=== PATIENT | female | born 1970 | race Caucasian/White ===

== ENCOUNTER 2017-09-09 17:03 | Emergency (ER) | payer OTHER ==
[~2017-09-09] VITALS: Ht 170.2 cm; Wt 63.5 kg
--- NOTE | 2017-09-09 17:57 | ED GENERAL ADULT ---
See Addendum History of Present Illness General Chief Complaint: Headache Stated Complaint: HEADACHE FOR 3 DAYS, SHIVERS Source: patient Exam Limitations: no limitations Vital Signs & Intake/Output Vital Signs & Intake/Output Vital Signs Date Time Temp Pulse Resp B/P B/P Pulse O2 O2 Flow FiO2 Mean Ox Delivery Rate 09/09 1825 100.6 09/09 1820 100.6 88 20 95 Room Air 09/09 1744 Room Air 09/09 1729 103.7 09/09 1724 103.7 116 20 166/100 96 Room Air Allergies Coded Allergies: NO KNOWN ALLERGIES (09/09/17) Triage Note: PT COMPLAINS OF PAIN BASE OF HER NECK FOR THE PAST 3 DAYS, TEMP 103.7 , COLOR FLUSHED, PT NOTED WITH UNCONTROLLED TREMORS AT TRIAGE. MEDICATED WITH TYLENOL AN D BROUGHT DIRECTLY TO ROOM Triage Nurses Notes Reviewed? 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 She has no history or risk factors for meningitis, immunodeficiency, has no sick contacts at home, and has no family members currently living in a dormitory or barracks situation. She reports that 3 days ago she began experiencing moderate headache discomfort, which has progressed over the ensuing 72 hours to include cervical pain made worse with flexion, shaking chills, and tactile fever. At triage, the patient was tachycardic with an oral temperature of 103F. Meningitis and sepsis pathway's initiated immediately. Past History Travel History Traveled to [place] past 21 day No Medical History Any Pertinent Medical History? 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 No Employment History Employment Employed (at [employer]) Review of Systems Review of Systems Constitutional: Reports: see HPI, chills, diaphoresis, fever, weakness. Denies: unexplained weight loss. EENTM: Reports: no symptoms. Respiratory: Reports: no symptoms. Cardiovascular: Reports: no symptoms. GI: Reports: no symptoms. Genitourinary: Reports: no symptoms. Musculoskeletal: Reports: no symptoms, neck pain. Skin: Reports: no symptoms. Neurological/Psychological: Reports: see HPI, headache. Hematologic/Endocrine: Reports: no symptoms. Immunologic/Allergic: Reports: no symptoms. All Other Systems: Reviewed and Negative Physical Exam Physical Exam General Appearance: well developed/nourished, moderate distress Comments: Gen.: Ill in appearance with obvious nuchal rigidity, tachycardia, and tactile fever. HEENT: Inspection of the head reveals a normocephalic cranium with no signs of trauma. Ophtho: Extraocular muscles are intact and pupils are equal and reactive to light bilaterally with no afferent pupillary defect. The sclera are noninjected , and there is no obvious discharge. Neck: Nuchal rigidity made much worse on flexion. Respiratory: The lungs are clear and equal to auscultation bilaterally without wheezes, rales, or rhonchi. The patient exhibits no signs of labored breathing. Cardiac: Tachycardic without appreciable murmurs on auscultation. No obvious JVD. GI: Examination of the abdomen reveals no significant focal tenderness in any of the four quadrants. There is negative Buck's sign, negative McBurney's point tenderness, negative Freddie sign, negative Cortes-Pereira sign, and no signs of peritonitis whatsoever on percussion or deep palpation. The skin is intact with no sign of trauma or infection. : Deferred Neuro: Active headache. The patient is oriented to person, place, time, and situation, with no obvious focal motor deficits. There were no sensory deficits , and the patient exhibit purposeful movement of all 4 extremities. Cranial nerves II through XII are intact, and gait is normal. Behavioral: Anxious regarding symptoms. Dermatologic: Flushed, but no jules exanthem. Core Measures ACS in differential dx? No CVA/TIA Diagnosis: No Sepsis Present: No (lactate negative) Sepsis Focused Exam Completed? Yes ED Sepsis Exam Date of Focused Sepsis Exam: 09/09/17 Time of Focused Sepsis Exam: 1801 Sepsis Cardiac Exam: Regular Rate/Rhythm Sepsis Resp Exam: CTA Sepsis Cap Refill Exam: <2 Sec Sepsis Peripheral Pulse Exam: Normal Sepsis Peripheral Pulse Location: Dorsalis Pedis Sepsis Skin Color Exam: Flushed Skin Temp/Moisture Exam: Hot/Dry Progress Differential Diagnoses I considered the following diagnoses in my evaluation of the patient: Sepsis, viral meningitis, bacterial meningitis, aseptic meningitis, cervical abscess, viral syndrome Plan of Care: Orders Procedure Date/time Status Nothing by Mouth 09/10 B Active LACTIC ACID 09/09 2046 Active LACTIC ACID 09/09 2026 Active CEREBROSPINAL FL CELL CT 09/09 185 Active URINE 09/[address] CERV SPINE W IV CONTRAST 09/09 175 Active CEREBROSPINAL FLUID CULTURE 09/09 174 Active BLOOD CULTURE 09/09 174 Active URINALYSIS 09/09 174 Active LACTIC ACID 09/09 174 Active ANTI-IMMUNE GLOBULIN G CSF 09/09 174 Active CYTOLOGY SPECIMEN 09/09 174 Active CSF TOTAL PROTEIN 09/09 174 Active CSF LDH 09/09 174 Active CSF GLUCOSE 09/09 174 Active EKG 09/[address] HEAD WO IV CONTRAST 09/09 174 Active BLOOD CULTURE 09/09 172 Active LACTIC ACID 09/09 172 Complete HUMAN BETA HCG SCREEN 09/09 172 Complete COMPREHENSIVE METABOLIC PANEL 09/09 172 Complete CBC WITHOUT DIFFERENTIAL 09/09 1726 Complete Laboratory Tests 09/09/17 1850: CSF Glucose 56, CSF LDH 123, CSF Total Protein 41 09/09/17 1850: CSF WBC Pending, CSF RBC Pending, CSF Comment Pending 09/09/17 185: Lactic Acid Pending, CSF Albumin Pending, CSF IgG Pending, IgG, Serum (MS) Pending, Serum Albumin Pending, CSF IgG Synth Rate MS Pending, CSF/Serum IgG Index Pending 09/09/17 1805: Anion Gap 12, Estimated GFR > 60, BUN/Creatinine Ratio 13.3, Glucose 101 H, Lactic Acid 1.0, Calcium 9.0, Total Bilirubin 0.9, AST 33, ALT 37, Alkaline Phosphatase 65, Total Protein 7.3, Albumin 4.0, Globulin 3.3, Albumin/Globulin Ratio 1.2, Total Beta HCG NEGATIVE, CBC w Diff NO MAN DIFF REQ, RBC 4.25, MCV 89.7, MCH 30.8, MCHC 34.4, RDW 12.6, MPV 8.3, Gran % 81.0 H, Lymphocytes % 9.0 L, Monocytes % 9.9 H, Eosinophils % 0, Basophils % 0.1, Absolute Granulocytes 5.7, Absolute Lymphocytes 0.6 L, Absolute Monocytes 0.7 H, Absolute Eosinophils 0, Absolute Basophils 0 Microbiology 09/09 1850 CENT N S: CSF Culture - RECD 09/09 1850 CENT N S: Gram Stain - RECD 09/09 1804 BLOOD: Blood Culture - RECD 09/09 1726 BLOOD: Blood Culture - ORD 09/09 1726 BLOOD: Blood Culture - ORD CXR Impression: no acute abnormality, no infiltrates, normal size heart, normal mediastinum Initial ED EKG: ECG performed at 1801 hrs., read by me at 1805 hrs., normal sinus rhythm at 90 bpm, normal axis, normal P waves, ME interval, QTC, and QRS intervals, normal ST segments, normal T waves, no STEMI. Hand-Off Endorsed To: Ron Fink MD Endorsed Time: 1917 Pending: CT, labs (CSF), other Comments: At the time of shift change, care was transitioned to Dr. Fink. We are still awaiting CSF results, fluid resuscitation, defervescence, and urinalysis. Thankfully the lactate is negative so sepsis does not appear to be present. Diagnosis of enteritis will depend on CSF. Patient still on droplet precautions. Departure Departure Disposition: STILL A PATIENT Condition: Stable Clinical Impression Primary Impression: Headache Qualifiers: Headache type: unspecified Headache chronicity pattern: acute headache Intractability: not intractable Qualified Code: R51 - Headache Secondary Impressions: Fever Qualifiers: Fever type: unspecified Qualified Code: R50.9 - Fever, unspecified Referrals: Rocael MCKINNON,Jadiel Sinclair (PCP/Family) Departure Forms: Customer Survey General Discharge Information Critical Care Note Critical Care Note Critical Care Time: 75-104 min Comments: Critical care time spent >60 minutes. The patient was suffering from a critical illness that acutely impairs one or more vital organ systems and there is a high probability of imminent or life threatening deterioration in the patient's condition. During this time I was personally involved in activities including direct delivery of medical care, aggressive sepsis care, meningitis workup, including lumbar puncture, consulting multiple specialists, and decision making of high complexity to assess, manipulate, and support vital organ system failure (in this case, potential meningitis with sepsis) and/or to prevent further life threatening deterioration of the patient's condition. The failure to initiate these interventions on an urgent basis would likely result in sudden, clinically significant or life threatening deterioration in the patient's condition.
--- NOTE | 2017-09-09 18:26 | RADIOLOGY REPORT ---
EXAMINATION: CHEST 1 VIEW CLINICAL INFORMATION: Fever. COMPARISON: 10/24/2009. TECHNIQUE: An AP view of the chest is provided. FINDINGS: The cardiac silhouette is not enlarged. The mediastinal and hilar contours are unremarkable. There are neither pleural effusions nor pneumothoraces. There are no consolidations. The osseous structures are unremarkable. IMPRESSION: No evidence for acute disease.
[2017-09-09 18:41] LABS: ABSOLUTE BASOPHIL COUNT 0 /CUMM (0.0-0.2); ABSOLUTE EOSINOPHIL COUNT 0 /CUMM (0.0-0.7); ABSOLUTE GRANULOCYTE CT 5.7 /CUMM (1.4-6.5); ABSOLUTE LYMPH COUNT 0.6 /CUMM (1.2-3.4); ABSOLUTE MONOCYTE COUNT 0.7 /CUMM (0.10-0.60); BASOPHIL % 0.1 % (0.0-2.0); EOSINOPHIL % 0 % (0-5); HEMATOCRIT 38.1 % (37-47); MEAN CORPUSCULAR HGB 30.8 PG (27.0-31.0); MEAN CORPUSCULAR HGB CONC 34.4 G/DL (33.0-37.0); MEAN CORPUSCULAR VOLUME 89.7 FL (81.0-99.0); MEAN PLATELET VOLUME 8.3 FL (7.4-10.4); PLATELET COUNT 246 /CUMM (130-400); RBC DISTRIBUTION WIDTH 12.6 % (11.5-14.5); RED BLOOD CELL CT 4.25 /CUMM (4.20-5.40); WHITE BLOOD CELL COUNT 7.1 /CUMM (4.8-10.8)
--- NOTE | 2017-09-09 20:34 | CT SCAN REPORT ---
EXAMINATIONS: CT HEAD WITHOUT CONTRAST AND CT NECK WITH CONTRAST CLINICAL INFORMATION: Headache, neck pain, fever. Concern for meningitis or abscess. COMPARISON: None. TECHNIQUE: Contiguous helical images of the brain were obtained without IV contrast. Contiguous helical images of the neck were obtained following the administration of IV contrast. Multiplanar reconstructions were performed. DLP: 1120 mGy-cm. FINDINGS: There are no pathologic extra-axial fluid collections. The lateral, third, fourth ventricles are nondilated and concordant with the appearance of the sulci. There is no evidence for acute intraparenchymal hemorrhage or infarct. There is neither mass nor mass effect. There is no shift of midline structures. The paranasal sinuses and mastoid air cells are clear. There are no osseous lesions. The cervical vertebra are in normal alignment. There is mild disc height loss at C5/C6. Disc heights and vertebral heights are otherwise well-preserved. There are no fractures. There is no prevertebral soft tissue swelling. There are no enhancing lesions. There are no abnormal fluid collections. There is no cervical lymphadenopathy. The visualized lung apices are clear. IMPRESSION: No evidence for acute intracranial injury. No evidence for acute injury to the neck. No fluid collections. No enhancing lesions. No osseous abnormalities. Mild disc height loss at C5/C6.
[2017-09-09 23:03] VITALS: BP 138/79
== END 2017-09-09 23:05 ==
LOC: ERH 17:03
PROVIDERS: Physician Assistant
DX: R51 Headache (principal); R50.9 Fever, unspecified
CPT/HCPCS: 82040; 82784; 83883; 87070; 87205; 71045; 81003; 81025; 87040; 88305; 93005; 93010; 96374; 96375; 99291; J0696; J1100; J1885; J2001; J2765; J3370; J7040

== ENCOUNTER 2017-09-14 08:14 | Emergency (ER) | payer OTHER ==
[~2017-09-14] VITALS: Ht 168.9 cm; Wt 63.5 kg
--- NOTE | 2017-09-14 08:48 | ED GENERAL ADULT ---
History of Present Illness General Chief Complaint: Headache Stated Complaint: [place] Source: patient Exam Limitations: no limitations Vital Signs & Intake/Output Vital Signs & Intake/Output Vital Signs Date Time Temp Pulse Resp B/P B/P Pulse O2 O2 Flow FiO2 Mean Ox Delivery Rate 09/14 1058 98.2 64 20 121/57 89 09/14 0916 98.0 64 18 122/57 100 / 0820 98.0 62 18 155/92 99 Room Air Allergies Coded Allergies: NO KNOWN ALLERGIES (09/09/17) Reconcile Medications No Known Home Medications Triage Note: 46 YEAR OLD FEMALE TO TRIAGE WITH COMPLAINTS OF CONSTANT HEADACHE SINCE THURSDAY, WAS SEEN HERE THURSDAY, HAD 103.7 TEMP HEAD PAIN, HAD SPINAL TAP DONE THAT WAS NEGATIVE. STATES THAT THE HEADACHE HAS NEVER GONE AWAY, TOOK MOTRIN OVER THE WEEKEND WITH NO RELIEF. PT HAS NAUSEA AND VOMITTED X 1 THIS AM. AFEBRILE AT THIS TIME Triage Nurses Notes Reviewed? yes HPI: Patient is a healthy 38-year-old female who presents today for headache. I personally evaluated her last week for headache, fever, rigors, and nuchal rigidity. We performed laboratory studies and a lumbar puncture. The CSF was clear and there is no evidence of meningitis at that time. She reported feeling somewhat improved and was discharged home. However, she reports her headache syndrome has been ongoing and is identical to that which brought her in last time. She has no further fever, but when she left last week she did note a lesion on her left lower extremity near her Achilles which had scabbed over. No tick was seen but she did note a tick on her indoor cat recently. Upon my initial encounter she is clearly uncomfortable, albeit nontoxic. Past History Travel History Traveled to [place] past 21 day No Medical History Any Pertinent Medical History? 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 No Review of Systems Review of Systems Constitutional: Reports: see HPI. Denies: chills, diaphoresis, fever, malaise. EENTM: Reports: no symptoms. Respiratory: Reports: no symptoms. Cardiovascular: Reports: no symptoms. GI: Reports: no symptoms. Genitourinary: Reports: no symptoms. Musculoskeletal: Reports: no symptoms. Skin: Reports: no symptoms. Neurological/Psychological: Reports: see HPI, headache. Hematologic/Endocrine: Reports: no symptoms. Immunologic/Allergic: Reports: no symptoms. All Other Systems: Reviewed and Negative Physical Exam Physical Exam General Appearance: well developed/nourished, alert, awake, moderate distress Comments: HEENT: Inspection of the head reveals a normocephalic cranium with no signs of trauma. Ophtho: Extraocular muscles are intact and pupils are equal and reactive to light bilaterally with no afferent pupillary defect. The sclera are noninjected , and there is no obvious discharge. Neck: The trachea is midline, there is no obvious asymmetry or mass over the thyroid, and there is no midline cervical spine tenderness Respiratory: The lungs are clear and equal to auscultation bilaterally without wheezes, rales, or rhonchi. The patient exhibits no signs of labored breathing. Cardiac: Regular rhythm and non-tachycardic without appreciable murmurs on auscultation. No obvious JVD. GI: Examination of the abdomen reveals no significant focal tenderness in any of the four quadrants. There is negative Buck's sign, negative McBurney's point tenderness, negative Osgood sign, negative Cortes-Pereira sign, and no signs of peritonitis whatsoever on percussion or deep palpation. The skin is intact with no sign of trauma or infection. : Deferred Neuro: Active headache pain. The patient is oriented to person, place, time, and situation, with no obvious focal motor deficits. There were no sensory deficits, and the patient exhibit purposeful movement of all 4 extremities. Cranial nerves II through XII are intact, and gait is normal. Behavioral: Calm and cooperative Dermatologic: Dermatologic examination reveals no diffuse rashes or exanthems, no petechiae, no ecchymoses, and no other signs of erythema or infection. Core Measures ACS in differential dx? No CVA/TIA Diagnosis: No Sepsis Present: No Sepsis Focused Exam Completed? No Progress Differential Diagnoses I considered the following diagnoses in my evaluation of the patient: Plan of Care: Orders Procedure Date/time Status URINE 09/14 838 Complete URINALYSIS 06/04 0839 Complete LYME TITRE 09/14 838 Active COMPREHENSIVE METABOLIC PANEL 09/14 838 Complete CBC WITHOUT DIFFERENTIAL 09/14 838 Complete Laboratory Tests 09/14/17 0958: Urine Color YEL, Urine Clarity CLEAR, Urine pH 7.5, Ur Specific [place] 1.015, Urine Protein NEG, Urine Ketones NEG, Urine Nitrite NEG, Urine Bilirubin NEG, Urine Urobilinogen 0.2, Ur Leukocyte Esterase NEG, Ur Microscopic SEDIMENT EXAMINED, Urine RBC 1-3, Ur Epithelial Cells FEW, Urine Bacteria RARE H, Urine Hemoglobin TRACE-INTACT, Urine Glucose NEG, Urine Test NEGATIVE 09/14/17 0848: Lyme Disease Antibody Pending 09/14/17847: Anion Gap 8, Estimated GFR > 60, BUN/Creatinine Ratio 16.7, Glucose 106 H, Calcium 8.8, Total Bilirubin 0.6, AST 32, ALT 35, Alkaline Phosphatase 56, Total Protein 6.6, Albumin 3.5, Globulin 3.1, Albumin/Globulin Ratio 1.1, CBC w Diff NO MAN DIFF REQ, RBC 3.98 L, MCV 88.2, MCH 30.8, MCHC 34.9, RDW 12.7, MPV 7.6, Gran % 73.4, Lymphocytes % 19.3 L, Monocytes % 6.4, Eosinophils % 0.5, Basophils % 0.4, Absolute Granulocytes 4.3, Absolute Lymphocytes 1.1 L, Absolute Monocytes 0.4, Absolute Eosinophils 0, Absolute Basophils 0, Babesia microti IgG Ab Pending, Babesia microti IgM Ab Pending, Babesia Interpretation Pending, Ehrlichia DNA (PCR) Pending Initial ED EKG: none Comments: Patient presented today for ongoing headache in the setting of recent visit to the emergency department for rule out of meningitis. Please see my prior note from that encounter. Workup was negative at that time, but pain continued. Patient did note a cutaneous lesion on her leg since then and was concern for tick bite, so I have sent a tickborne disease panel. She felt improved with intravenous fluids, dexamethasone, ketorolac and metoclopramide. I reassessment , patient requested discharge home. She received imaging last week which was negative and I do not suspect internal intracerebral pathology. Rather, this may be a new onset headache syndrome versus effects from Lyme disease etc. so she will follow-up with her PCP for final Lyme panel results and with neurology for reassessment of her headache syndrome. Medical screening examination otherwise negative, patient stable at time of discharge. I recommended over-the -counter Excedrin Migraine for her ongoing symptoms until such time as neurology can recommend further medications. Departure Departure Time of Disposition: 1150 Disposition: HOME OR SELF CARE Condition: Stable Clinical Impression Primary Impression: Headache Qualifiers: Headache type: unspecified Headache chronicity pattern: episodic headache Intractability: intractable Qualified Code: R51 - Headache Referrals: Rocael MCKINNON,Jadiel Sinclair (PCP/Family) Additional Instructions: Please call your primary physician for follow-up and for referral to neurology, who you can call at the attached number for an appointment. As always, return to the emergency department if you develop any new or worsening symptoms. Departure Forms: Customer Survey General Discharge Information Prescriptions: Current Visit Scripts No Known Home Medications Critical Care Note Critical Care Note Critical Care Time: non-applicable
[2017-09-14 09:00] LABS: ABSOLUTE BASOPHIL COUNT 0 /CUMM (0.0-0.2); ABSOLUTE EOSINOPHIL COUNT 0 /CUMM (0.0-0.7); ABSOLUTE GRANULOCYTE CT 4.3 /CUMM (1.4-6.5); ABSOLUTE LYMPH COUNT 1.1 /CUMM (1.2-3.4); ABSOLUTE MONOCYTE COUNT 0.4 /CUMM (0.10-0.60); BASOPHIL % 0.4 % (0.0-2.0); EOSINOPHIL % 0.5 % (0-5); GRANULOCYTE % 73.4 % (42.2-75.2); HEMATOCRIT 35.1 % (37-47); MEAN CORPUSCULAR HGB 30.8 PG (27.0-31.0); MEAN CORPUSCULAR HGB CONC 34.9 G/DL (33.0-37.0); MEAN CORPUSCULAR VOLUME 88.2 FL (81.0-99.0); MEAN PLATELET VOLUME 7.6 FL (7.4-10.4); PLATELET COUNT 333 /CUMM (130-400); RBC DISTRIBUTION WIDTH 12.7 % (11.5-14.5); RED BLOOD CELL CT 3.98 /CUMM (4.20-5.40); WHITE BLOOD CELL COUNT 5.8 /CUMM (4.8-10.8)
[2017-09-14 10:58] VITALS: BP 121/57
[2017-09-17 14:36] LABS: BABESIA MICROTI IGG <1:64 (<1:64); BABESIA MICROTI IGM <1:20 (<1:20)
== END 2017-09-14 11:56 ==
LOC: ERH 08:14
PROVIDERS: Student in an Organized Health Care Education/Training Program
DX: R51 Headache (principal)
CPT/HCPCS: 86618; 81001; 81025; 86753; 87798; 96361; 96374; 96375; J1100; J1885; J2765

== ENCOUNTER 2017-09-15 11:18 | Emergency (ER) | payer OTHER ==
[~2017-09-15] VITALS: Ht 168.9 cm; Wt 63.5 kg
--- NOTE | 2017-09-15 11:51 | ED GENERAL ADULT ---
See Addendum History of Present Illness General Chief Complaint: Headache Stated Complaint: "HERE FOR ADMISSION, HEADACHES" PER PT Source: patient Exam Limitations: no limitations Vital Signs & Intake/Output Vital Signs & Intake/Output Vital Signs Date Time Temp Pulse Resp B/P B/P Pulse O2 O2 Flow FiO2 Mean Ox Delivery Rate 09/15 1147 98.4 72 18 159/83 98 Room Air Allergies Coded Allergies: NO KNOWN ALLERGIES (09/09/17) Reconcile Medications No Known Home Medications Triage Nurses Notes Reviewed? yes HPI: Patient is a 46-year-old female who presents today for headache. I received a call earlier this morning from her primary care physician with whom she had called to make an appointment. He called me from the office stating that she was still in excruciating pain, holding her head and crying. I evaluated her last week at which time she had a fever and neck rigidity so we did a full workup including CSF which was negative. We discussed the possibility of viral meningitis or aseptic meningitis at that time him about ultimately she was feeling better and was deemed stable for discharge home. She returned yesterday and I controlled her pain and again discussed with her the possibility of admission, but she felt better with our interventions and thus requested discharge home. I referred her to neurology and she made an appointment but unfortunately it is not for several weeks. When she saw her PCP today, her pain had returned fully. He is sending her back for reevaluation for likely admission which I feel is evidently reasonable given her intractable pain. Upon my initial encounter the patient is in severe distress, complaining of symptoms that are identical to those which she has had previously. Past History Travel History Traveled to [place] past 21 day No Medical History Any Pertinent Medical History? 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 No Review of Systems Review of Systems Constitutional: Reports: see HPI. EENTM: Reports: no symptoms. Respiratory: Reports: no symptoms. Cardiovascular: Reports: no symptoms. GI: Reports: no symptoms. Genitourinary: Reports: no symptoms. Musculoskeletal: Reports: no symptoms. Skin: Reports: no symptoms. Neurological/Psychological: Reports: headache. Denies: numbness, paresthesia. Hematologic/Endocrine: Reports: no symptoms. Immunologic/Allergic: Reports: no symptoms. All Other Systems: Reviewed and Negative Physical Exam Physical Exam General Appearance: well developed/nourished, no apparent distress, alert, awake , anxious, severe distress Comments: HEENT: Inspection of the head reveals a normocephalic cranium with no signs of trauma. Ophtho: Extraocular muscles are intact and pupils are equal and reactive to light bilaterally with no afferent pupillary defect. The sclera are noninjected , and there is no obvious discharge. Neck: The trachea is midline, there is no obvious asymmetry or mass over the thyroid, and there is no midline cervical spine tenderness Respiratory: The lungs are clear and equal to auscultation bilaterally without wheezes, rales, or rhonchi. The patient exhibits no signs of labored breathing. Cardiac: Regular rhythm and non-tachycardic without appreciable murmurs on auscultation. No obvious JVD. GI: Examination of the abdomen reveals no significant focal tenderness in any of the four quadrants. There is negative Buck's sign, negative McBurney's point tenderness, negative [place] sign, negative Cortes-Pereira sign, and no signs of peritonitis whatsoever on percussion or deep palpation. The skin is intact with no sign of trauma or infection. : Deferred Neuro: Active severe headache. The patient is oriented to person, place, time, and situation, with no obvious focal motor deficits. There were no sensory deficits, and the patient exhibit purposeful movement of all 4 extremities. Cranial nerves II through XII are intact, and gait is normal. Behavioral: Calm and cooperative Dermatologic: Dermatologic examination reveals no diffuse rashes or exanthems, no petechiae, no ecchymoses, and no other signs of erythema or infection. Core Measures ACS in differential dx? No CVA/TIA Diagnosis: No Sepsis Present: No Sepsis Focused Exam Completed? No Progress Differential Diagnoses I considered the following diagnoses in my evaluation of the patient: Migraine syndrome, viral meningitis, aseptic meningitis, other primary headache syndrome, multiple other possible neurologic abnormalities Plan of Care: Orders Procedure Date/time Status Regular Diet 09/15 D Active ED Holding Orders 09/16 1207 Active Admit to inpatient 09/16 1207 Active Code Status 06/05 1208 Active Patient Data 06/05 1201 Active COMPREHENSIVE METABOLIC PANEL 09/15 1146 Complete CBC WITHOUT DIFFERENTIAL 09/15 1146 Complete Laboratory Tests 09/15/17 1205: Anion Gap 12, Estimated GFR > 60, BUN/Creatinine Ratio 15.0, Glucose 107 H, Calcium 9.1, Total Bilirubin 0.9, AST 36, ALT 40, Alkaline Phosphatase 65, Total Protein 7.4, Albumin 4.0, Globulin 3.4, Albumin/Globulin Ratio 1.2, CBC w Diff NO MAN DIFF REQ, RBC 4.07 L, MCV 89.0, MCH 30.8, MCHC 34.7, RDW 12.6, MPV 7.7, Gran % 78.4 H, Lymphocytes % 16.7 L, Monocytes % 4.6, Eosinophils % 0.1, Basophils % 0.2, Absolute Granulocytes 8.0 H, Absolute Lymphocytes 1.7, Absolute Monocytes 0.5, Absolute Eosinophils 0, Absolute Basophils 0 Initial ED EKG: none Comments: Patient has had intractable pain and this is now her third visit. I reviewed again her CSF which was definitively negative with 0 white blood cells. Unfortunately no viral PCR was sent, but never left the patient has had no further nuchal rigidity or fever, making viral/aseptic meningitis less likely. Rather, other primary headache disorder is possible and given her intractable pain she will require hospitalization for neurology consultation, pain control intravenously, and further workup. Hospitalized in stable condition. Departure Departure Time of Disposition: 1155 Disposition: STILL A PATIENT Condition: Stable Clinical Impression Primary Impression: Intractable headache Qualifiers: Headache type: unspecified Headache chronicity pattern: episodic headache Qualified Code: R51 - Headache Referrals: Rocael MCKINNON,Jadiel Sinclair (PCP/Family) Departure Forms: Customer Survey General Discharge Information Prescriptions: Current Visit Scripts No Known Home Medications Admission Note Spoke With: Jensen MCKINNON,Lizet Documentation of Exam: Documentation of any treatments & extenuating circumstances including Concerns Regarding Discharge (functional status, medication knowledge or non-compliance, living conditions, etc.) that warrant an admission rather than observation: Patient has been to the emergency department now 3 times for severe headache pain. Our attempts at outpatient management have been unsuccessful and the pain has been intractable. She has required serial doses of IV analgesics in the emergency department each visit, including today. Discharge home again is not acceptable and the patient will require hospitalization for neurology consultation, further intravenous analgesics, and further workup. Critical Care Note Critical Care Note Critical Care Time: non-applicable
[2017-09-15 12:14] LABS: ABSOLUTE BASOPHIL COUNT 0 /CUMM (0.0-0.2); ABSOLUTE EOSINOPHIL COUNT 0 /CUMM (0.0-0.7); ABSOLUTE LYMPH COUNT 1.7 /CUMM (1.2-3.4); EOSINOPHIL % 0.1 % (0-5); MEAN CORPUSCULAR HGB 30.8 PG (27.0-31.0); RBC DISTRIBUTION WIDTH 12.6 % (11.5-14.5)
[2017-09-15 12:19] LABS: ABSOLUTE MONOCYTE COUNT 0.5 /CUMM (0.10-0.60); BASOPHIL % 0.2 % (0.0-2.0); GRANULOCYTE % 78.4 % (42.2-75.2); HEMATOCRIT 36.2 % (37-47); MEAN CORPUSCULAR HGB CONC 34.7 G/DL (33.0-37.0); MEAN PLATELET VOLUME 7.7 FL (7.4-10.4); PLATELET COUNT 393 /CUMM (130-400); RED BLOOD CELL CT 4.07 /CUMM (4.20-5.40)
[2017-09-15 12:20] LABS: WHITE BLOOD CELL COUNT 10.2 /CUMM (4.8-10.8)
--- NOTE | 2017-09-15 15:53 | INTERVENTIONAL RADIOLOGY RPT ---
PROCEDURE: FLUOROSCOPY GUIDED LUMBAR EPIDURAL BLOOD PATCH CLINICAL HISTORY: 46-year-old female with worsening headache status post lumbar puncture 1 week ago. COMPARISON: None PHYSICIANS: Dr. Harshad Bennett FLUOROSCOPY TIME: 3.2 minutes. DAP: 7.0 MEDICATIONS: 5 mL 1% lidocaine, subcutaneously. PROCEDURE NOTE: Informed consent was obtained from the patient prior to the procedure. During this process, the procedure and potential alternatives were explained along with the intended outcome and benefits. The risks of the procedure, including the possibility of an unsuccessful procedure, as well as the risk of not doing the procedure, were discussed. The patient was given the opportunity to ask questions regarding the procedure and appeared competent to make decisions. A signed consent form documenting this discussion was placed in the medical record. A time-out procedure was performed. TECHNIQUE: A 20-gauge IV Hep-Lock was placed in the right antecubital vein. The patient was placed on the table in the prone position. The lower back was prepped and draped in sterile fashion, using iodine-based solutions. Under fluoroscopic guidance, a 20-gauge spinal needle was slowly advanced into the epidural space of the central canal, at the L3-L4 level just short of entering the thecal sac. Needle position was confirmed by small injection of contrast. Next, approximately 10 cc of the patient's own blood was obtained from the Hep-Lock with sterile technique, and then slowly injected into the appropriately placed spinal needle. The needle was removed and a sterile dressing was applied. The patient tolerated the procedure well without any immediate complication. FINDINGS: A spinal needle is entering the central canal at the L3-L4 level. Spot radiographs show a small amount of contrast within the epidural space. IMPRESSION: Successful lumbar approach epidural blood patch, with a total of 10 ml autologous blood injected.
--- NOTE | 2017-09-15 16:10 | Cons- Medical ---
General Information and HPI Consulting Request Date of Consult: 09/15/17 Requested By: Domo Cuellar MD Reason for Consult: Intractable headache Source of Information: patient, old records Exam Limitations: no limitations History of Present Illness: The patient is a 46 yo female with no significant past medical history who originally presented in the ED 1 week ago for evaluation of headache. At that time she had full workup, including LP. CSF results were benign (no WBC, etc.). She returned to ED yesterday and was treated for headache and again today with worsening of headache, photophobia, & nausea. Was initially referred for admission. She has had no fevers, chills, or other symptoms. Upon questioning patient she has no h/o headaches or migraines. Headache has been much worse since LP and is worse on sitting/improved on lying down. [place] symptoms were more c/w spinal headache. Spoke with Dr. Mead in IR who performed blood patch at 2:30 pm (Dr. Cuellar aware). The patient described relief of headache and photophobia post blood patch. Allergies/Medications Allergies: Coded Allergies: NO KNOWN ALLERGIES (09/09/17) Home Med List: No Known Home Medications Current Medications: Current Medications Sig/Clint Start time Last Medication Dose Route Stop Time Status Admin Iohexol 0 .STK-MED ONE 09/15 1449 DC .ROUTE Ketorolac 0 .STK-MED ONE 09/15 1208 DC Tromethamine .ROUTE Ketorolac 30 MG ONCE ONE 09/15 1145 DC / Tromethamine IV 09/15 1146 1207 Metoclopramide HCl 0 .STK-MED ONE 09/15 1208 DC .ROUTE Metoclopramide HCl 10 MG ONCE ONE 09/15 1145 DC 06/05 IV 06/05 1146 1207 Sodium Chloride 1,000 ML BOLUS ONE 09/15 1200 DC 06/05 IV 06/05 1259 1207 Review of Systems Review of Systems Constitutional: Denies: no symptoms. Cardiovascular: Denies: no symptoms. Respiratory: Denies: no symptoms. GI: Reports: nausea. Genitourinary: Denies: no symptoms. Musculoskeletal: Denies: no symptoms. Skin: Denies: no symptoms. Neurological/Psychological: Reports: headache. Denies: cognitive dysfunction, numbness. Hematologic/Endocrine: Denies: no symptoms. Immunologic/Allergic: Denies: no symptoms. 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 Surgical History: 1 Psychosocial History ETOH Use: denies use Illicit Drug Use: denies illicit drug use Exam & Diagnostic Data Last 24 Hrs of Vital Signs/I&O Vital Signs Date Time Temp Pulse Resp B/P B/P Pulse O2 O2 Flow FiO2 Mean Ox Delivery Rate 09/15 1426 98.7 62 16 113/56 99 Room Air 09/15 1343 Room Air 09/15 1147 98.4 72 18 159/83 98 Room Air Intake & Output 09/15 1600 09/15 0800 09/15 0000 Intake Total 1000 Output Total Balance 1000 Intake, IV 1000 Patient 140 lb Weight Physical Exam General Appearance: well developed/nourished, moderate distress (HEADACHE/NAUSEA ) Head: atraumatic, normal appearance Eyes: Bilateral: normal appearance, PERRL, EOMI. Neck: normal inspection, supple, full range of motion Respiratory: normal breath sounds, lungs clear Cardiovascular: regular rate/rhythm, normal peripheral pulses Gastrointestinal: normal bowel sounds, soft, non-tender Back: SPINAL TAP SITE L2-3 Extremities: normal inspection, normal range of motion, no edema Neurologic/Psych: no motor/sensory deficits, awake, alert, oriented x 3 Cranial Nerves: normal hearing, normal speech, PERRL Last 24 Hrs of Labs/Sebastian: Laboratory Tests 09/15/17 1205: Anion Gap 12, Estimated GFR > 60, BUN/Creatinine Ratio 15.0, Glucose 107 H, Calcium 9.1, Total Bilirubin 0.9, AST 36, ALT 40, Alkaline Phosphatase 65, Total Protein 7.4, Albumin 4.0, Globulin 3.4, Albumin/Globulin Ratio 1.2, PT 12.0, INR 1.10, CBC w Diff NO MAN DIFF REQ, RBC 4.07 L, MCV 89.0, MCH 30.8, MCHC 34.7, RDW 12.6, MPV 7.7, Gran % 78.4 H, Lymphocytes % 16.7 L, Monocytes % 4.6, Eosinophils % 0.1, Basophils % 0.2, Absolute Granulocytes 8.0 H, Absolute Lymphocytes 1.7, Absolute Monocytes 0.5, Absolute Eosinophils 0, Absolute Basophils 0 Assessment/Plan Assessment/Plan Impression/Plan: #Intractable Headache- history as above with headache being much worse post LP last week. It is positional with worsening in upright position. Symptoms most c/ w spinal headache. Her original headache may have been viral. LP result were benign. Plan: As above, blood patch performed by Dr. Mead in IR (done at 2:30 pm). Immediately after blood patch patient appears improved. If headache resolved post blood patch may cancel admission and discharge to home. If still significant symptoms will proceed with admission. Discussed with Dr. Cuellar and ED nursing/Case Management. Consult Acknowledgment - Thank you for your consult request.
[2017-09-15 16:55] VITALS: BP 126/68
== END 2017-09-15 17:01 ==
LOC: ERH 11:18 → ERHI 12:08 → ERH 12:08 → ERHI 17:01
PROVIDERS: Student in an Organized Health Care Education/Training Program
DX: R51 Headache (principal); G97.1 Other reaction to spinal and lumbar puncture
CPT/HCPCS: ERO; 96374; 96375; J1885; J2765